=== PATIENT | female | born 1980 | race Caucasian/White ===

== ENCOUNTER → 2016-08-06 | Outpatient (CLI) | payer BC | LOC: US 14:55 | DX: E04.1 Nontoxic single thyroid nodule (principal) | CPT/HCPCS: 76536 ==

== ENCOUNTER → 2021-08-02 | Outpatient (CLI) | payer BC ==
[~2021-08-02] MED LIST: IBUPROFEN600 MG PO
== END ==
LOC: US 07-28 14:30
DX: E04.1 Nontoxic single thyroid nodule (principal)
CPT/HCPCS: 76536